=== PATIENT | male | born 1980 | race Caucasian/White ===

== ENCOUNTER 2023-03-30 18:27 | Emergency (ER) | payer OTHER, SELFPAY ==
[2023-03-30 19:07] VITALS: BP 118/74; PULSE 66; RESP 16; TEMP 36.6; O2SAT 96; BMI 27.9
--- NOTE | 2023-03-30 19:07 | ED_ITS ---
HPI - General Adult General Chief complaint: Psychiatric Symptoms Stated complaint: Mental Health Time Seen by Provider: 03/30/23 19:58 Source: patient Mode of arrival: EMS Limitations: no limitations History of Present Illness HPI narrative: Patient comes to the emergency room stating that he feels that his depression and anxiety are worsening. Patient has had multiple stressors in life, 2 months ago his uncle , shortly after that he broke up with his girlfriend, then patient quit his job. Patient states that he takes Celexa 20 mg was not seem to be working as well. Patient requesting to be seen by Psychiatry/behavior Health for outpatient treatment and also for medication recommendations. Denies SI or HI Related Data Home Medications Medication Instructions Recorded Confirmed citalopram 20 mg tablet 30 mg PO DAILY 03/30/23 03/30/23 Allergies Allergy/AdvReac Type Severity Reaction Status Date / Time No Known Allergies Allergy Verified 03/30/23 19:17 Review of Systems Review of Systems: Constitutional : No Weight loss, No Fever, No Chills, No Night Sweats, No Fatigue, No Malaise ENT/Mouth : No Hearing loss, No Ear Pain, No Nasal Congestion, No Sinus Pain, No Hoarseness, No sore throat, No Rhinorrhea, No Swallowing Difficulty Eyes: No Eye Pain, No Swelling, No Redness, No Foreign Body, No Discharge, No Vision Changes Cardiovascular : No Chest Pain, No SOB, No Dyspnea on Exertion, No Orthopnea, No Edema, No Palpitations Respiratory : No Cough, No Sputum, No Wheezing, No Smoke Exposure, No Dyspnea Gastrointestinal : No Nausea, No Vomiting, No Diarrhea, No Constipation, No abdominal Pain, No Hematochezia, No Melena Genitourinary : no irregular bleeding, No Dysuria, No Urinary Frequency, No H ematuria, No Urinary Incontinence, No Urgency, No Flank Pain, No Urinary Flow Changes, No Hesitancy Musculoskeletal : No joint pain, No Myalgias, No Joint Swelling Skin : No Skin Lesions, No rash Neuro : No Weakness, No Numbness, No Paresthesias, No Loss of Consciousness, No Dizziness, No Headache Psych : Of anxiety and depression, multiple life stressors, no SI or HI Heme/Lymph: No Bruising, No Bleeding,No Lymphadenopathy Endocrine : No Polyuria, No Polydipsia, No Temperature Intolerance [facility] Past Medical History Medical History (Updated 03/30/23 @ 20:40 by Opal Green MD) Anxiety and depression Social History Social History Advance Directives: No Advance Directives Information Provided: Yes Physical Exam ED Vital Signs: Vital Signs - 24 hr 03/30/23 19:07 Temperature 97.8 F Pulse Rate 66 Respiratory Rate 16 Blood Pressure 118/74 Pulse Oximetry 96 Oxygen Delivery Method Room Air BMI result Body Mass Index 27.9 Const Other: Appearance: Alert. Oriented X3. No acute distress. Eyes: Pupils equal, round and reactive to light. ENT: Pharynx normal. Neck: Normal inspection. Neck supple. No lymph nodes noted. No crepitus CVS: Normal heart rate and rhythm. Pulses normal. Normal S1 and S2 Respiratory: No respiratory distress. Breath sounds normal. No Wheezing. No rales Abdomen: Soft and nontender. No rigidity. No distention. Skin: Skin warm and dry. Normal skin color. Normal skin turgor. Extremities: No lower extremity edema. No Lacerations. No Rash Neuro: Oriented X 3. No motor deficit. No sensory deficit. Moving all extremities. No slurred speech. CN 2 through 12 grossly intact Psych: calm, cooperative, normal affect, coherent Course Course Course Narrative: RME performed by Annabelle Antunez PA-C. Patient is a 42 year old assigned male at presenting to the emergency department in crisis. Patient states that he is having a difficult time with a lot of emotional events lately. Patient st ates that he would like to talk about resources, possible hospitalization, and medication adjustments. Patient states that he is not suicidal or homicidal. Labs ordered. Patient walked to the POD. Medical Decision Making Medical Decision Making [facility] Narrative: -patient labs pending -care team consult pending -patient is not suicidal homicidal, no need for Section 12. -physician observation started at 20:30 -the care team evaluated the patient. They will make an urgent referral for HD on outpatient basis. Patient is not SI or HI, patient agreeable to be discharged home and feels safe going home Differential Diagnosis Differential Diagnoses: The differential diagnosis associated with the presentation includes (Anxiety, depression, substance abuse) Lab Data [facility] Lab Attestation statement: I reviewed the patient's lab results. (My interpretation of labs: Normal white blood cell count, chemistry unremarkable, toxicology positive for THC) 03/30/23 20:23 03/30/23 20:23 Labs: Lab Results 03/30/23 03/30/23 03/30/23 Range/Units 20:05 20:05 20:05 WBC (4.8-10.8) X10*3/uL RBC (4.60-5.80) X10*6/uL Hgb (14.0-18.0) g/dl Hct (42.0-52.0) % MCV (80.0-98.0) fL MCH (27.0-33.0) pg MCHC (31.0-36.0) g/dl RDW (11.0-16.0) % Plt Count (160-400) X10*3/uL MPV (9.4-12.4) fL Immature Gran % (Auto) (0.0-0.4) % Neut % (Auto) (45-73) % Lymph % (Auto) (20-40) % [place] % (Auto) (2-11) % Eos % (Auto) (0-4) % Baso % (Auto) (0-2) % Lymph # (Auto) (1.2-4.9) X10*3/uL [place] # (Auto) (0.1-1.2) X10*3/uL Eos # (Auto) (0.0-0.4) X10*3/uL Baso # (Auto) (0.0-0.2) X10*3/uL Abs Immat Gran (auto) (0.00-0.03) X10*3/uL Absolute Neuts (auto) (2.0-8.3) x10*3/uL Absolute Nucleated RBC (0.0-0.012) X10*3/uL Nucleated RBC % (auto) (0.0-0.2) /100WBC Sodium (135-145) mmol/L Potassium (3.3-5.1) mmol/L Chloride (96-108) mmol/L Carbon Dioxide (22-29) mmol/L Anion Gap (12-20) BUN (9-16) mg/dL Creatinine (0.5-1.4) mg/dL Estim Creat Clear Calc Estimated GFR Random Glucose (60-115) mg/dL Calcium (8.4-10.2) mg/dL Total Bilirubin (0.0-1.0) mg/dL AST (5-37) U/L ALT (0-40) U/L Alkaline Phosphatase (39-117) U/L Total Protein (6.5-8.0) g/dL Albumin (3.5-5.0) g/dL Urine Color Yellow Urine Appearance Clear Urine pH 5.5 (5.0-9.0) Ur Specific [place] 1.020 (1.005-1.025) Urine Protein Negative (Neg-Trace) mg/dL Urine Glucose (UA) Negative (Negative) mg/dL Urine Ketones Negative (Negative) mg/dL Urine Blood Negative (Negative) Urine Nitrite Negative (Negative) Ur Leukocyte Esterase Negative (Negative) Salicylates (15-30) mg/dL Urine Opiates Screen Not Detected (Not Detect) Urine Fentanyl Screen Not Detected (Not Detect) Acetaminophen (<30) mcg/mL Ur Barbiturates Screen Not Detected (Not Detect) Ur Phencyclidine Scrn Not Detected (Not Detect) Ur Amphetamines Screen Not Detected (Not Detect) U Benzodiazepines Scrn Not Detected (Not Detect) Urine Cocaine Screen Not Detected (Not Detect) U Marijuana (THC) Screen POSITIVE H (Not Detect) Ethyl Alcohol mg/dL COVID-19 (BEKA) Negative (Negative) COVID-19 Clin Com See Note 03/30/23 03/30/23 03/30/23 Range/Units 20:23 20: 20: WBC 6.2 (4.8-10.8) X10*3/uL RBC 4.76 (4.60-5.80) X10*6/uL Hgb 15.2 (14.0-18.0) g/dl Hct 44.8 (42.0-52.0) % MCV 94.1 (80.0-98.0) fL MCH 31.9 (27.0-33.0) pg MCHC 33.9 (31.0-36.0) g/dl RDW 12.4 (11.0-16.0) % Plt Count 292 (160-400) X10*3/uL MPV 9.2 L (9.4-12.4) fL Immature Gran % (Auto) 0.2 (0.0-0.4) % Neut % (Auto) 52.2 (45-73) % Lymph % (Auto) 33.3 (20-40) % [place] % (Auto) 9.2 (2-11) % Eos % (Auto) 4.0 (0-4) % Baso % (Auto) 1.1 (0-2) % Lymph # (Auto) 2.1 (1.2-4.9) X10*3/uL [place] # (Auto) 0.6 (0.1-1.2) X10*3/uL Eos # (Auto) 0.3 (0.0-0.4) X10*3/uL Baso # (Auto) 0.1 (0.0-0.2) X10*3/uL Abs Immat Gran (auto) 0.01 (0.00-0.03) X10*3/uL Absolute Neuts (auto) 3.2 (2.0-8.3) x10*3/uL Absolute Nucleated RBC 0.000 (0.0-0.012) X10*3/uL Nucleated RBC % (auto) 0.0 (0.0-0.2) /100WBC Sodium 137 (135-145) mmol/L Potassium 4.2 (3.3-5.1) mmol/L Chloride 105 (96-108) mmol/L Carbon Dioxide 24 (22-29) mmol/L Anion Gap 12 (12-20) BUN 12 (9-16) mg/dL Creatinine 1.08 (0.5-1.4) mg/dL Estim Creat Clear Calc 107.5 Estimated GFR > 60 Random Glucose 111 (60-115) mg/dL Calcium 8.9 (8.4-10.2) mg/dL Total Bilirubin 0.3 (0.0-1.0) mg/dL AST 17 (5-37) U/L ALT 14 (0-40) U/L Alkaline Phosphatase 63 (39-117) U/L Total Protein 6.7 (6.5-8.0) g/dL Albumin 4.1 (3.5-5.0) g/dL Urine Color Urine Appearance Urine pH (5.0-9.0) Ur Specific [place] (1.005-1.025) Urine Protein (Neg-Trace) mg/dL Urine Glucose (UA) (Negative) mg/dL Urine Ketones (Negative) mg/dL Urine Blood (Negative) Urine Nitrite (Negative) Ur Leukocyte Esterase (Negative) Salicylates < 5.0 L (15-30) mg/dL Urine Opiates Screen (Not Detect) Urine Fentanyl Screen (Not Detect) Acetaminophen < 17 (<30) mcg/mL Ur Barbiturates Screen (Not Detect) Ur Phencyclidine Scrn (Not Detect) Ur Amphetamines Screen (Not Detect) U Benzodiazepines Scrn (Not Detect) Urine Cocaine Screen (Not Detect) U Marijuana (THC) Screen (Not Detect) Ethyl Alcohol < 10 mg/dL COVID-19 (BEKA) (Negative) COVID-19 Clin Com Discharge Plan Discharge Clinical Impression: Anxiety and depression Patient Disposition: Home, Self-Care Instructions: Anxiety (ED) Additional Instructions: Please follow-up with your primary care physician tomorrow. If you have any worsening or new symptoms, please return to the emergency room or call 911 Prescriptions: No Action citalopram 20 mg tablet 30 mg PO DAILY
[2023-03-30 20:22] LABS: Appearance Urine Clear; Color Urine Yellow; Glucose Urine UA Negative (Negative); Leukocyte Esterase Urine Negative (Negative); Nitrite Urine Negative (Negative); PH 5.5 (5.0-9.0); Urine Blood Negative (Negative); Urine Ketones Negative (Negative); Urine Protein Negative (Neg-Trace)
[2023-03-30 20:26] LABS: Amphetamine Screen Urine Not Detected (Not Detect); Barbiturates, Urine Not Detected (Not Detect); Benzodiazepines Screen Urine Not Detected (Not Detect); Cannabinoid Screen Urine POSITIVE (Not Detect); Cocaine Screen Urine Not Detected (Not Detect); Fentanyl, urine Not Detected (Not Detect); Opiate Screen Urine Not Detected (Not Detect); Phencyclidine Screen Urine Not Detected (Not Detect)
[2023-03-30 20:27] LABS: COVID-19 Test Negative (Negative); IDNOW Serial# 55D5AD1C
[2023-03-30 20:28] LABS: MANUAL DIFF FLAG NO
[2023-03-30 20:40] LABS: Basophils Absolute Auto 0.1 X10*3/uL (0.0-0.2); Basophils Percent Auto 1.1 % (0-2); Eosinophils Absolute Auto 0.3 X10*3/uL (0.0-0.4); Hematocrit 44.8 % (42.0-52.0); Hemoglobin 15.2 g/dl (14.0-18.0); Imm Gran Abs Auto 0.01 X10*3/uL (0.00-0.03); Imm Gran Pct Auto 0.2 % (0.0-0.4); Lymphocytes Absolute Auto 2.1 X10*3/uL (1.2-4.9); Lymphocytes Percent Auto 33.3 % (20-40); Mean Corpuscular HGB Conc 33.9 g/dl (31.0-36.0); Mean Corpuscular Hemoglobin 31.9 pg (27.0-33.0); Mean Corpuscular Volume 94.1 fL (80.0-98.0); Mean Platelet Volume 9.2 fL (9.4-12.4); Monocytes Absolute Auto 0.6 X10*3/uL (0.1-1.2); Monocytes Percent Auto 9.2 % (2-11); Neutrophils Absolute Auto 3.2 x10*3/uL (2.0-8.3); Neutrophils Percent Auto 52.2 % (45-73); Platelet Count 292 X10*3/uL (160-400); Red Blood Count 4.76 X10*6/uL (4.60-5.80); Red Cell Distribution Width 12.4 % (11.0-16.0); White Blood Count 6.2 X10*3/uL (4.8-10.8)
[2023-03-30 20:58] LABS: Acetaminophen LAB < 17 mcg/mL (<30); Alanine Aminotransferase 14 U/L (0-40); Albumin Level 4.1 g/dL (3.5-5.0); Alkaline Phosphatase 63 U/L (39-117); Anion Gap 12 (12-20); Aspartate Amino Transferase 17 U/L (5-37); Bilirubin Total 0.3 mg/dL (0.0-1.0); Blood Urea Nitrogen 12 mg/dL (9-16); Calcium 8.9 mg/dL (8.4-10.2); Carbon Dioxide 24 mmol/L (22-29); Chloride 105 mmol/L (96-108); Creatinine Clr Calc Pharmacy 107.5; Estimated Glomerular Filt Rate > 60; Ethanol < 10 mg/dL; Glucose Random 111 mg/dL (60-115); Potassium 4.2 mmol/L (3.3-5.1); Salicylate < 5.0 mg/dL (15-30); Sodium 137 mmol/L (135-145); Total Protein 6.7 g/dL (6.5-8.0)
== END 2023-03-30 22:14 | disposition home or self-care (01) ==
PROVIDERS: Physician Assistant Medical; Emergency Provider Emergency Medicine
DX: F41.8 Other specified anxiety disorders (principal); Z20.822 Contact with and (suspected) exposure to COVID-19; F12.90 Cannabis use, unspecified, uncomplicated; Z79.899 Other long term (current) drug therapy
CPT/HCPCS: 36415; 80053; 80143; 80179; 80307; 81003; 85025; 87635; 99283; S9485

== ENCOUNTER 2024-01-03 13:16 | Emergency (ER) | payer OTHER, SELFPAY ==
[2024-01-03 13:23] VITALS: BP 128/82; PULSE 93; RESP 18; TEMP 36.5; O2SAT 100; BMI 30.3
--- NOTE | 2024-01-03 13:23 | ED.PSYCH ---
HPI - Psych General Chief Complaint: Psychiatric Symptoms Stated Complaint: Mental health Related Data Previous Rx's ?Medication ?Instructions ?Recorded aripiprazole 2 mg tablet (Abilify) 2 mg PO BEDTIME #30 tabs 01/04/24 fluoxetine 20 mg capsule (Prozac) 20 mg PO DAILY #30 caps 01/04/24 Allergies Allergy/AdvReac Type Severity Reaction Status Date / Time No Known Allergies Allergy Verified 01/03/24 13:28 [facility] Past Medical History Medical History (Updated 01/10/24 @ 09:33 by Lolita Boyce NP) Anxiety and depression Physical Exam Vital Signs: Vital Signs: Last Vital Signs Temp 97.7 F 01/03/24 13:23 Pulse 93 01/03/24 13:23 Resp 18 01/03/24 13:23 BP 128/82 01/03/24 13:23 Pulse Ox 100 01/03/24 13:23 O2 Del Method Room Air 01/03/24 13:23 BMI result Body Mass Index 30.3 Course Course Course Narrative: This is a rapid medical exam: Additional HPI, ROS, PE not included below will be deferred to primary provider. Patient is a 43-year-old male presenting to the ED with complaint of difficult remaining stable. He denies suicidal or homicidal ideations, denies auditory or visual hallucinations. Admits to drinking alcohol and using marijuana but states is not interested in detox at this time. Friend states he is looking to speak with Sabine Michaud. Plan: med clearance, CARE team eval Medical Decision Making Lab Data 01/03/24 14:08 01/03/24 14:08 Labs: Lab Results 01/03/24 Range/Units 14:08 WBC 7.2 (4.8-10.8) X10*3/uL RBC 4.97 (4.60-5.80) X10*6/uL Hgb 15.9 (14.0-18.0) g/dl Hct 46.4 (42.0-52.0) % MCV 93.4 (80.0-98.0) fL MCH 32.0 (27.0-33.0) pg MCHC 34.3 (31.0-36.0) g/dl RDW 12.4 (11.0-16.0) % Plt Count 300 (160-400) X10*3/uL MPV 9.1 L (9.4-12.4) fL Immature Gran % (Auto) 0.3 (0.0-0.4) % Neut % (Auto) 56.5 (45-73) % Lymph % (Auto) 30.6 (20-40) % [place] % (Auto) 7.7 (2-11) % Eos % (Auto) 4.1 H (0-4) % Baso % (Auto) 0.8 (0-2) % Lymph # (Auto) 2.2 (1.2-4.9) X10*3/uL [place] # (Auto) 0.6 (0.1-1.2) X10*3/uL Eos # (Auto) 0.3 (0.0-0.4) X10*3/uL Baso # (Auto) 0.1 (0.0-0.2) X10*3/uL Abs Immat Gran (auto) 0.02 (0.00-0.03) X10*3/uL Absolute Neuts (auto) 4.1 (2.0-8.3) x10*3/uL Absolute Nucleated RBC 0.000 (0.0-0.012) X10*3/uL Nucleated RBC % (auto) 0.0 (0.0-0.2) /100WBC Sodium 141 (135-145) mmol/L Potassium 3.7 (3.3-5.1) mmol/L Chloride 109 H (96-108) mmol/L Carbon Dioxide 28 (22-29) mmol/L Anion Gap 8 L (12-20) BUN 11 (9-16) mg/dL Creatinine 1.02 (0.5-1.4) mg/dL Estim Creat Clear Calc 126.3 Estimated GFR > 60 Random Glucose 67 (60-115) mg/dL Calcium 8.8 (8.4-10.2) mg/dL Total Bilirubin 0.3 (0.0-1.0) mg/dL AST 21 (5-37) U/L ALT 22 (0-40) U/L Alkaline Phosphatase 65 (39-117) U/L Total Protein 7.1 (6.5-8.0) g/dL Albumin 4.3 (3.5-5.0) g/dL Ethyl Alcohol 32 mg/dL COVID-19 (BEKA) Negative (Negative) COVID-19 Clin Com See Note Discharge Plan Discharge Clinical Impression: Acute anxiety Patient Disposition: Left W/O Completing Treatment Prescriptions: No Action fluoxetine [Prozac] 20 mg capsule 20 mg PO DAILY Qty: 30 0RF aripiprazole [Abilify] 2 mg tablet 2 mg PO BEDTIME Qty: 30 0RF Interventions: [place]-Suicide Risk Severity Scale Last Done: 01/03/24 15:50 LWBS Worksheet Last Done: 01/03/24 15:49 Discharge Date/Time: 01/03/24 15:49
[2024-01-03 14:12] LABS: MANUAL DIFF FLAG NO
[2024-01-03 14:16] LABS: Basophils Absolute Auto 0.1 X10*3/uL (0.0-0.2); Basophils Percent Auto 0.8 % (0-2); Eosinophils Absolute Auto 0.3 X10*3/uL (0.0-0.4); Eosinophils Percent Auto 4.1 % (0-4); Hematocrit 46.4 % (42.0-52.0); Hemoglobin 15.9 g/dl (14.0-18.0); Imm Gran Abs Auto 0.02 X10*3/uL (0.00-0.03); Imm Gran Pct Auto 0.3 % (0.0-0.4); Lymphocytes Absolute Auto 2.2 X10*3/uL (1.2-4.9); Lymphocytes Percent Auto 30.6 % (20-40); Mean Corpuscular HGB Conc 34.3 g/dl (31.0-36.0); Mean Corpuscular Volume 93.4 fL (80.0-98.0); Mean Platelet Volume 9.1 fL (9.4-12.4); Monocytes Absolute Auto 0.6 X10*3/uL (0.1-1.2); Monocytes Percent Auto 7.7 % (2-11); Neutrophils Absolute Auto 4.1 x10*3/uL (2.0-8.3); Neutrophils Percent Auto 56.5 % (45-73); Platelet Count 300 X10*3/uL (160-400); Red Blood Count 4.97 X10*6/uL (4.60-5.80); Red Cell Distribution Width 12.4 % (11.0-16.0); White Blood Count 7.2 X10*3/uL (4.8-10.8)
[2024-01-03 14:24] LABS: Ethanol 32 mg/dL
[2024-01-03 14:28] LABS: Alanine Aminotransferase 22 U/L (0-40); Albumin Level 4.3 g/dL (3.5-5.0); Alkaline Phosphatase 65 U/L (39-117); Anion Gap 8 (12-20); Aspartate Amino Transferase 21 U/L (5-37); Bilirubin Total 0.3 mg/dL (0.0-1.0); Blood Urea Nitrogen 11 mg/dL (9-16); Calcium 8.8 mg/dL (8.4-10.2); Carbon Dioxide 28 mmol/L (22-29); Chloride 109 mmol/L (96-108); Creatinine Clr Calc Pharmacy 126.3; Estimated Glomerular Filt Rate > 60; Glucose Random 67 mg/dL (60-115); Potassium 3.7 mmol/L (3.3-5.1); Sodium 141 mmol/L (135-145); Total Protein 7.1 g/dL (6.5-8.0)
[2024-01-03 14:36] LABS: COVID-19 Test Negative (Negative); IDNOW Serial# 58CA691E
== END 2024-01-03 15:49 | disposition left against medical advice (07) ==
PROVIDERS: Registered Nurse Emergency; Emergency Provider Emergency Medicine
DX: F41.1 Generalized anxiety disorder (principal); F43.0 Acute stress reaction; Z11.52 Encounter for screening for COVID-19; Z79.899 Other long term (current) drug therapy
CPT/HCPCS: 36415; 80053; 80307; 85025; 87635; 99283

== ENCOUNTER 2024-01-04 10:57 | Outpatient (AMB) | payer OTHER, SELFPAY ==
[2024-01-04 11:06] VITALS: BP 160/80; PULSE 80; RESP 20; O2SAT 98
--- NOTE | 2024-01-04 11:06 | A.OFFVISCC_ITS ---
Vital Signs 01/04/24 11:06 BP 160/80 H Blood Pressure Location Rt brachial Position Sitting Respiration 20 Pulse 80 Pulse Oximetry (%) 98 Oxygen Delivery Method Room Air Intake Visit Reasons: Intake Allergies No Known Allergies Allergy (Verified 01/03/24 13:28) Medication List - Last Reconciled 01/04/24 by Sabine Michaud CNP HPI HPI Intake: Details: Patient presents for intake and evaluation for alcohol use disorder and associated depressive sx Alcohol 2-6 beers per night for at least the last month couple nips reporting increasing depressive sx Sleep: 11p-2p limited sleep no night terros no issues with appetite amotivation Recently lost his job --has lost several recently due to calling out Anxiety no PCP at this time History Respite x2 2016 (depression.anxiety) No psychiatric admission providers -- [facility] 2017 [employer] Previous medication trials Atomexatine Lexapro Prozac (somewhat helpful) Wellbutrin (irritable) Risperdal (limited trial) ativan hydroxyzine PRN No medications NKA Loss of brother and relationship --precipitating factors Son is 11 --coparenting (protective factor ) lives with friend in [place] Drinks less with therapy self depricating Family History: Father with AUD Mother with mesclaine Siblings 3 siblings -depression Motivation for treatment is to address BH sx Limited insight into alcohol's role in this Open to medications and referral Denies suicidal ideation, however passive thoughts are often there [facility] Medical History (Updated 01/05/24 @ 20:30 by Sabine Michaud CNP) Anxiety and depression Review of Systems Const Reports as per HPI Physical Exam Vital Signs: Last Vital Signs Pulse 80 01/04/24 11:06 Resp 20 01/04/24 11:06 BP 160/80 H 01/04/24 11:06 Pulse Ox 98 01/04/24 11:06 Oxygen Delivery Method Room Air 01/04/24 11:06 Const General: cooperative, no acute distress and anxious Nutritional Appearance: average body habitus Orientation/consciousness: patient oriented x3 Limitations: no limitations Neuro General: patient oriented x3 Psych Appearance: well kempt Speech and movement: Normal speech and movement present Affect: Animated affect present and Anxious affect present Attitude: cooperative Thought process: Circumstantial thought process present Thought content: Depressive thoughts present Insight: Fair insight present (Psych) Judgement: Fair judgement present (Psych) Assessment & Plan Assessment & Plan (1) Alcohol use disorder, moderate, dependence: Code(s): F10.20 - Alcohol dependence, uncomplicated Category: Medical Plan: * risk reduction discussion and resources provided * declining naltrexone at this time (2) Major depressive disorder, recurrent: Code(s): F33.9 - Major depressive disorder, recurrent, unspecified Category: Medical Plan: * Fluoxetine 20mg daily (patient familiar with this medication, dosing and side effects) * Abilify 2mg QD -dosing, side effects and goals of treatment reviewed * follow up 2 weeks Medications: New fluoxetine (Prozac) 20 mg PO DAILY 30 caps 0RF aripiprazole (Abilify) 2 mg PO BEDTIME 30 tabs 0RF
== END 2024-01-04 12:09 | disposition home or self-care (01) ==
PROVIDERS: Visit Provider Nurse Practitioner Psychiatric/Mental Health
DX: F10.20 Alcohol dependence, uncomplicated (principal); F33.9 Major depressive disorder, recurrent, unspecified
CPT/HCPCS: 99204

== ENCOUNTER → 2024-01-04 10:57 | Outpatient (BNVA) | payer OTHER, SELFPAY | PROVIDERS: Visit Provider Nurse Practitioner Psychiatric/Mental Health | DX: F10.20 Alcohol dependence, uncomplicated (principal); F33.9 Major depressive disorder, recurrent, unspecified | CPT/HCPCS: 99202 ==

== ENCOUNTER 2024-01-21 09:57 | Outpatient (AMB) | payer OTHER, SELFPAY ==
[2024-01-21 09:59] VITALS: BP 132/90; PULSE 83; O2SAT 98
--- NOTE | 2024-01-21 09:59 | A.OFFVISCC_ITS ---
Vital Signs 01/21/24 09:59 BP 132/90 H Blood Pressure Location Lt brachial Position Sitting Pulse 83 Pulse Source Pulse Oximeter Pulse Oximetry (%) 98 Oxygen Delivery Method Room Air Intake Visit Reasons: MAT Allergies No Known Allergies Allergy (Verified 01/03/24 13:28) HPI HPI MAT: Details: Patient presents for follow up Tolerating medication -taking both in the morning Does feel like he has a bit more motivation, but also questioning if he is edgier with people Sleep 5-7 hours per night appetite okay still wants to trial ADHD medications (adderall) --advised that this would not be something we would be doing right now concerns related to ongoing alcohol use with limited insight has not heard from [facility] regarding therapy--requested RN follow up Regarding drinking: reducing amount and frequency 6 pack and pint of whiskey is what he would usually purchase to drink in one sitting Now buying 3 tall beers instead no longer drinking daily--taking 2-3 days off per week. working to quit smoking-smoking one ppd Discussed strategies including medication, reducing amount over a period of time, and patient is considering hypnosios [facility] Medical History (Updated 01/11/24 @ 00:01 by Background Daemon) Anxiety and depression Review of Systems Const Reports as per HPI Physical Exam Vital Signs: Last Vital Signs Pulse 83 01/21/24 09:59 BP 132/90 H 01/21/24 09:59 Pulse Ox 98 01/21/24 09:59 Oxygen Delivery Method Room Air 01/21/24 09:59 Const General: cooperative, no acute distress and well groomed Assessment & Plan Assessment & Plan (1) Alcohol use disorder, moderate, dependence: Code(s): F10.20 - Alcohol dependence, uncomplicated Category: Medical Plan: * risk reduction discussion (2) Major depressive disorder, recurrent: Code(s): F33.9 - Major depressive disorder, recurrent, unspecified Category: Medical Plan: * no change to regimen * follow up 4 weeks
== END 2024-01-21 10:45 | disposition home or self-care (01) ==
PROVIDERS: Visit Provider Nurse Practitioner Psychiatric/Mental Health
DX: F10.20 Alcohol dependence, uncomplicated (principal); F33.9 Major depressive disorder, recurrent, unspecified
CPT/HCPCS: 99214

== ENCOUNTER → 2024-01-21 09:57 | Outpatient (BNVA) | payer OTHER, SELFPAY | PROVIDERS: Visit Provider Nurse Practitioner Psychiatric/Mental Health | DX: F10.20 Alcohol dependence, uncomplicated (principal); F33.9 Major depressive disorder, recurrent, unspecified | CPT/HCPCS: 99212 ==

== ENCOUNTER 2024-02-19 16:01 | Outpatient (AMB) | payer OTHER, SELFPAY ==
--- NOTE | 2024-02-19 16:00 | A.OFFVISCC_ITS ---
Vital Signs 02/19/24 16:05 BP 144/90 H Blood Pressure Location Rt brachial Position Sitting Respiration 18 Pulse 76 Pulse Source Pulse Oximeter Pulse Oximetry (%) 99 Oxygen Delivery Method Room Air Intake Visit Reasons: MAT Allergies No Known Allergies Allergy (Verified 01/03/24 13:28) HPI HPI MAT: Details: Patient presents for AUD treatment and follow up States he has been trying unsuccessfully to quit smoking, asking for chantix Requesting counseling referral for transient depressive episodes Reports his alcohol use is generally 4 days on, 3 days off Has been drinking 4 16oz beers, and 2 shots Denies any symptoms of withdrawal when he does not drink, states maybe some mild irritability Is working to continue to cut down etoh use HPI Comments Details: Patient presents for MAT visit [facility] Medical History (Updated 01/11/24 @ 00:01 by Background Daemon) Anxiety and depression Review of Systems Const Reports as per HPI Physical Exam Vital Signs: Last Vital Signs Pulse 76 02/19/24 16:05 Resp 18 02/19/24 16:05 BP 144/90 H 02/19/24 16:05 Pulse Ox 99 02/19/24 16:05 Oxygen Delivery Method Room Air 02/19/24 16:05 Const General: cooperative and no acute distress Resp Effort & Inspection: normal respiratory effort and able to speak in complete sentences Psych Appearance: grossly normal Mental Status: mental status grossly normal Speech and movement: Normal speech and movement present Affect: normal affect Attitude: cooperative Thought process: Normal thought process present Assessment & Plan Assessment & Plan (1) Alcohol use disorder, moderate, dependence: Code(s): F10.20 - Alcohol dependence, uncomplicated Category: Medical Plan: -Referral placed for [facility] -CHantix rx sent to pharmacy, educated pt to stop med immediately for any depressive or SI thoughts and to seek higher level of care, reviewed potential side effects and how to take medication -Discussed harm reduction -Follow up 2 weeks Orders: Referrals 2 Counseling Referral F10.20 - Alcohol dependence, uncomplicated Medications: New varenicline PO PER PKG DIR 53 ea 0RF
[2024-02-19 16:05] VITALS: BP 144/90; PULSE 76; RESP 18; O2SAT 99
== END 2024-02-19 16:25 | disposition home or self-care (01) ==
PROVIDERS: Visit Provider Nurse Practitioner Family
DX: F10.20 Alcohol dependence, uncomplicated (principal)
CPT/HCPCS: 99213

== ENCOUNTER → 2024-02-19 16:01 | Outpatient (BNVA) | payer OTHER, SELFPAY | PROVIDERS: Visit Provider Nurse Practitioner Family | DX: F10.20 Alcohol dependence, uncomplicated (principal) | CPT/HCPCS: 99212 ==

== ENCOUNTER 2024-04-02 15:51 | Outpatient (AMB) | payer OTHER, SELFPAY ==
--- NOTE | 2024-04-02 16:05 | A.OFFVISCC_ITS ---
Intake Visit Reasons: MAT office Allergies No Known Allergies Allergy (Verified 01/03/24 13:28) HPI HPI MAT office: Details: smoking a pack a day down to 1/4 pack a day chantix -nausea still tolerating abilify and prozac feels depression and anxiety are improving reporting some fatigue sleeping well decreased amount has decreased to one beer every other day PFSH Medical History (Updated 01/11/24 @ 00:01 by Background Daemon) Anxiety and depression Review of Systems Const Reports as per HPI and Reports no additional complaints Physical Exam Const General: cooperative, healthy appearing, no acute distress and well groomed Assessment & Plan Assessment & Plan (1) Alcohol use disorder, moderate, dependence: Code(s): F10.20 - Alcohol dependence, uncomplicated Category: Medical Plan: * risk reduction discussion (2) Major depressive disorder, recurrent: Code(s): F33.9 - Major depressive disorder, recurrent, unspecified Category: Medical Plan: * medications refilled * follow up 2 months Medications: Refilled aripiprazole (Abilify) 2 mg PO BEDTIME 30 tabs 2RF fluoxetine (Prozac) 20 mg PO DAILY 30 caps 2RF
== END 2024-04-02 16:18 | disposition home or self-care (01) ==
PROVIDERS: Visit Provider Nurse Practitioner Psychiatric/Mental Health
DX: F10.20 Alcohol dependence, uncomplicated (principal); F33.9 Major depressive disorder, recurrent, unspecified
CPT/HCPCS: 99214

== ENCOUNTER → 2024-04-02 15:51 | Outpatient (BNVA) | payer OTHER, SELFPAY | PROVIDERS: Visit Provider Nurse Practitioner Psychiatric/Mental Health | DX: F10.20 Alcohol dependence, uncomplicated (principal); F33.9 Major depressive disorder, recurrent, unspecified | CPT/HCPCS: 99212 ==

== ENCOUNTER 2025-03-09 16:53 | Emergency (ER) | payer MEDICAID, SELFPAY ==
[2025-03-09 16:56] VITALS: BP 129/97; PULSE 123; RESP 18; TEMP 36.6; O2SAT 99; BMI 30.3
--- NOTE | 2025-03-09 16:56 | ED_ITS ---
HPI - General Adult General Chief complaint: Psychiatric Symptoms Stated complaint: psych eval Time Seen by Provider: 03/09/25 17:34 History of Present Illness ED Provider: Reed Vásquez MD HPI narrative: 44-year-old male with chronic depression. He has been working but feeling very hopeless. No SI or HI. Per previously was in respite residential facility which helped him. Seems that he has had daily alcohol use occasional marijuana use. This is mental health issues starting to affect his work. He recently came into medical insurance and he is coming for evaluation. Previously was on medications including SSRI Abilify and Adderall. Related Data Allergies Allergy/AdvReac Type Severity Reaction Status Date / Time No Known Allergies Allergy Verified 03/09/25 17:01 [facility] Past Medical History Medical History (Updated 03/09/25 @ 19:40 by Reed Vásquez MD) Anxiety and depression Social History Social History Alcohol intake: current Alcohol intake frequency: a few times a week Alcohol type: beer Use of substances other than those prescribed or required for medical reasons: Yes Substance Use Type: Marijuana Substance Use Frequency: Chronic Longstanding Substance Use Frequency Other:: toda Last Used Substance: Hours (ago) Any prior treatment program specific to substance use: No Advance Directives: No Advance Directives Information Provided: No Do you have a plan to hurt others: No Plan Physical Exam ED Vital Signs: Vital Signs - 24 hr 03/09/25 19:46 Temperature 98.6 F Pulse Rate 100 Respiratory Rate 16 Blood Pressure 126/78 Pulse Oximetry 99 Oxygen Delivery Method Room Air BMI result Body Mass Index 30.3 Const Other: EXAM: Gen: Alert, awake, well appearing, well hydrated. Head: Atraumatic Eyes: Anicteric, Normal conjunctiva. ENT: Moist mucosa, no pallor. ? Neck: Supple. Skin: ?No observable rash or bruising on exposed or examined skin Respiratory: Breathing comfortably, No distress.Clear to auscultation bilaterally, symmetric chest expansion, No wheeze, rales, ronchi. Cardiovascular: Regular rate and rhythm. No murmurs or rub. Well perfused periphery, warm extremities. No edema. ? Abdominal: No FOCAL TENDERNESS. Soft, no objective distension. No palpable masses or obvious organomegaly. ?No guarding, no rebound tenderness or other peritoneal findings. : No flank tenderness. Neuro: Alert. Gross movement of all extremities intact. ? Psych: Calm. Cooperative. Depressed. No SI or HI. Not psychotic. Alcohol use daily. MSK: No grossly visible deformity. Vital signs: See flowsheet Course Course Course Narrative: RME performed by Annabelle Antunez PA-C. Patient is a 44 year old assigned male at presenting to the emergency department with difficulty staying mentally stable. Feeling lost / hopeless but denies any HI or SI. 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 EKG, labs, and swabs ordered. Patient placed back in the waiting room pending room availability and results. Medications Administered Discontinued Medications Generic Name Dose Route Start Last Admin Trade Name Freq PRN Reason Stop Dose Admin Thiamine HCl 100 mg 03/09/25 18:48 03/09/25 19:45 Thiamine Hcl 100 Mg Tablet PO 03/09/25 18:49 100 mg ONCE ONE Administration Medical Decision Making Medical Decision Making [facility] Narrative: 44-year-old male with chronic depression likely decompensated. Alcohol use daily. Clinically not in withdrawal declines detox. No acute medical complaints other than what is likely a lymph node under the right mandible that may need outpatient ENT evaluation which I have written on his discharge paper and discussed the importance of follow up for. No acute medical emergency identified. Care team evaluation for resources Differential Diagnosis Differential Diagnoses: The differential diagnosis associated with the presentation includes Depression, alcohol use disorder, electrolyte derangement, Lab Data [facility] Lab Attestation statement: I reviewed the patient's lab results. 03/09/25 17:19 03/09/25 17:19 Labs: Lab Results 03/09/25 03/09/25 Range/Units 17:19 17:58 WBC 7.5 (4.8-10.8) X10*3/uL RBC 5.00 (4.60-5.80) X10*6/uL Hgb 16.4 (14.0-18.0) g/dl Hct 45.2 (42.0-52.0) % MCV 90.4 (80.0-98.0) fL MCH 32.8 (27.0-33.0) pg MCHC 36.3 H (31.0-36.0) g/dl RDW 12.9 (11.0-16.0) % Plt Count 330 (160-400) X10*3/uL MPV 8.9 L (9.4-12.4) fL Immature Gran % (Auto) 0.3 (0.0-0.4) % Neut % (Auto) 58.9 (45-73) % Lymph % (Auto) 30.4 (20-40) % [place] % (Auto) 7.2 (2-11) % Eos % (Auto) 2.3 (0-4) % Baso % (Auto) 0.9 (0-2) % Lymph # (Auto) 2.3 (1.2-4.9) X10*3/uL [place] # (Auto) 0.5 (0.1-1.2) X10*3/uL Eos # (Auto) 0.2 (0.0-0.4) X10*3/uL Baso # (Auto) 0.1 (0.0-0.2) X10*3/uL Abs Immat Gran (auto) 0.02 (0.00-0.03) X10*3/uL Absolute Neuts (auto) 4.4 (2.0-8.3) x10*3/uL Absolute Nucleated RBC 0.000 (0.0-0.012) X10*3/uL Nucleated RBC % (auto) 0.0 (0.0-0.2) /100WBC Sodium 140 (135-145) mmol/L Potassium 3.8 (3.3-5.1) mmol/L Chloride 110 H (96-108) mmol/L Carbon Dioxide 19 L (22-29) mmol/L Anion Gap 15 (12-20) BUN 7 L (9-16) mg/dL Creatinine 1.19 (0.5-1.4) mg/dL Estim Creat Clear Calc 107.1 Estimated GFR > 60 Random Glucose 139 H (60-115) mg/dL Calcium 8.8 (8.4-10.2) mg/dL Total Bilirubin 0.4 (0.0-1.0) mg/dL AST 24 (5-37) U/L ALT 24 (0-40) U/L Alkaline Phosphatase 73 (39-117) U/L Total Protein 7.0 (6.5-8.0) g/dL Albumin 4.3 (3.5-5.0) g/dL Urine Color Yellow Urine Appearance Clear Urine pH 5.5 (5.0-9.0) Ur Specific [place] <= 1.005 (1.005-1.025) Urine Protein Negative (Neg-Trace) mg/dL Urine Glucose (UA) Negative (Negative) mg/dL Urine Ketones Negative (Negative) mg/dL Urine Blood Negative (Negative) Urine Nitrite Negative (Negative) Ur Leukocyte Esterase Negative (Negative) Salicylates < 5.0 L (15-30) mg/dL Urine Opiates Screen Not Detected (Not Detect) Ur Buprenorphine Scrn Not Detected (Not Detect) ng/mL Ur Oxycodone Screen Not Detected (Not Detect) ng/mL Urine Methadone Screen Not Detected (Not Detect) ng/mL Urine Fentanyl Screen Not Detected (Not Detect) Acetaminophen < 3 (<30) mcg/mL Ur Barbiturates Screen Not Detected (Not Detect) Ur Phencyclidine Scrn Not Detected (Not Detect) Ur Amphetamines Screen Not Detected (Not Detect) U Benzodiazepines Scrn Not Detected (Not Detect) Urine Cocaine Screen Not Detected (Not Detect) U Marijuana (THC) Screen POSITIVE H (Not Detect) Ethyl Alcohol 87 mg/dL COVID-19 (BEKA) Negative (Negative) COVID-19 Clin Com See Note Discharge Plan Discharge Clinical Impression: Major depressive disorder, recurrent Patient Disposition: Home, Self-Care Instructions: Depression (ED) Additional Instructions: _ DISCHARGE DIAGNOSES: Depression, regular alcohol use HISTORY OF PRESENTATION: Worsening depression EMERGENCY DEPARTMENT COURSE,TESTS, TREATMENTS: While in the ED today you had lab work that was reassuring. We evaluated what you felt was a chronic lump on the underside of your right mandible/jaw you may need to follow up with ENT for this for an ultrasound and evaluation see below. After discussion with our care team you decided to self discharge which we feel is safe and present to respite in [place] follow instructions per our care team DISCHARGE MEDICATIONS: ?[We have made no changes to your regular medication regimen] FOLLOW-UP: ?Call your primary or general physician soon as possible to discuss your symptoms, your ED visit and to discuss follow up plans Call ENT office for follow up Return tomorrow morning to respite in [place] as discussed with care team INSTRUCTIONS ?& RETURN PRECAUTIONS: If any symptoms change first call your primary physician, if it is after-hours your primary doctors office should have a provider remote operations producer you can speak with. If the symptoms are severe or very concerning to you then call 911 or return to the ED. Reed Vásquez MD Emergency Physician [facility] Referrals: PhysicianEugene [Primary Care Provider, Medical] Referral Note: Call for follow up of the nodule under the right mandible [facility] at [phone] Interventions: Mcbh [place]-Suicide Risk Severity Scale Last Done: 03/09/25 17:01 ED Discharge Assessment Last Done: 03/09/25 19:46 Discharge Date/Time: 03/09/25 19:54 Print Language: Israeli
--- NOTE | 2025-03-09 16:57 | ECG_ITS ---
Test Reason : medical clearance Blood Pressure : */* mmHG Vent. Rate : 124 BPM Atrial Rate : 124 BPM P-R Int : 158 ms QRS Dur : 86 ms QT Int : 300 ms P-R-T Axes : 51 -38 21 degrees QTcB Int : 431 ms Sinus tachycardia Left axis deviation Possible Inferior infarct , age undetermined Abnormal ECG No previous ECGs available Referred By: Annabelle Antunez Electronically Signed By: RONNIE MORGAN MD
--- OUTSIDE RECORDS SUMMARY | 2025-03-09 17:06 | XMS_ITS | Data Portability ---
Author Organization [facility], [employer] Address [address] [place] [phone] Assessment Encounter Date Assessment Date Assessment LastModified by Organization Details LastModified Time 04/05/2023 04/05/2023 Already on celexa. Increase dose. No BOB. Discussed the other meds as below. Discussed supportive care. F/u 2 weeks. Working on getting [employer]. [email or web address] Not available 04/05/2023 09:58:15 Plan of Treatment Reminders Order Date Submit Date Provider Last Modified By Organization Details Last Modified Time Details Appointments None recorded. Lab None recorded. Referral None recorded. Procedures None recorded. Surgeries None recorded. Imaging None recorded. Medication Orders citalopram 40 mg tablet 2022 023 [facility]/Pharmacy #[id number], [address] [facility], [id number], 3 09:28:34 lorazepam 0.5 mg tablet 2022 023 [email or web address] [facility]/Pharmacy #[id number], [address] [place], [id number], 3 09:53:55 trazodone 50 mg tablet 2022 023 [facility]/Pharmacy #[id number], [address] [place], [id number], 3 09:28:35 Patient TargetsNo targets recorded. Patient InstructionsNo instructions recorded. Reason for Referral None Reported. Medical Equipment None Reported. Medications Name Sig Start Date Stop Date Status Note LastModified by Organization Details LastModified Time bupropion HCl SR 150 mg tablet,12 hr sustained- release TAKE 1 TABLET BY MOUTH TWICE A DAY active Not Available Not Available No t Available citalopram 40 mg tablet TAKE 1 TABLET BY MOUTH EVERY DAY FOR 30 DAYS 2022 active Not Available Not Available Not Avai lable trazodone 50 mg tablet TAKE 1 TABLET BY MOUTH EVERY DAY AT BEDTIME 2022 active Not Available Not Available Not Avai lable citalopram 20 mg tablet TAKE 1 AND 1/2 TABLETS BY MOUTH DAILY active Not Available Not Available No t Available lorazepam 0.5 mg tablet active Lorazepam is on backorder . Not Available Not Available Not Available imiquimod 5 % topical cream packet APPLY 1 PACKET TOPICALLY 3 TIMES A WEEK. WASH HANDS PRIOR TO AND FOLLOWING APPLICATI ON. active Not Available Not Available No t Available Vitals None Recorded Social History None recorded. Functional Status None recorded. Mental Status None recorded. Family History Nothing Reported. Medical History No medical history recorded. Past Encounters Encounter ID Performer Location Encounter Start Date Encounter Closed Date Diagnosis/Indication Diagnosis SNOMED-CT Code Diagnosis ICD10 Code Diagnosis Note [id number] Aki Staples DO Main Office [address] [facility],[address] [facility] [place] [id number] 04/05/2023 08:02:14 04/05/2023 14:02:32 Generalized anxiety disorder 61923101 F41.1 Health Concerns Section Related Observation LastModified by Organization Detai ls LastModified Time None Recorded Concern Status LastModified by Organization Details LastModified Time None Recorded Advance Directives Directive None Recorded Payers Insurance Date Sequence Insurance Name Policy Number Policy Dash Covered Member ID Dash Member ID Guarantor Name 04/05/2023 1 *SELF PAY* Nick Esat Notes Date Note Type Note Provider Name and Address Organization Details Recorded Time 04/05/2023 text/html Worsening stress , anxiety, depression for last few months. Family, interpersonal issues. No SI. Missing time at work due to stress. Currently has intake completed at [facility]. Aki Staples DO [address] [place] [address] [address], [place], [phone], [facility] - Radha [facility] 04/05/2023 10:00:28
--- OUTSIDE RECORDS SUMMARY | 2025-03-09 17:06 | XMS_ITS | Data Portability ---
Author Organization [facility], [employer] Address [address] [place] [phone] Assessment Encounter Date Assessment Date Assessment LastModified by Organization Details LastModified Time 04/05/2023 04/05/2023 Already on celexa. Increase dose. No BOB. Discussed the other meds as below. Discussed supportive care. F/u 2 weeks. Working on getting [employer]. Not available 04/05/2023 09:58:15 Plan of Treatment Reminders Order Date Submit Date Provider Last Modified By Organization Details Last Modified Time Details Appointments None recorded. Lab None recorded. Referral None recorded. Procedures None recorded. Surgeries None recorded. Imaging None recorded. Medication Orders citalopram 40 mg tablet 2022 023 [facility]/Pharmacy #[id number], [address] [facility] [place], [address], 3 09:28:34 lorazepam 0.5 mg tablet 2022 023 [email or web address] [facility]/Pharmacy #[id number], [address] [place], [id number], 3 09:53:55 trazodone 50 mg tablet 2022 023 [facility]/Pharmacy #[id number], [address] [place], [address], 3 09:28:35 Patient TargetsNo targets recorded. Patient [...] SNOMED-CT Code Diagnosis ICD10 Code Diagnosis Note [id number] Aki Staples DO Main Office [address] [facility],[address] [facility] [place] [id number] 04/05/2023 08:02:14 04/05/2023 14:02:32 Generalized anxiety disorder 58889868 F41.1 Health Concerns Section Related Observation LastModified by Organization Detai ls LastModified Time None Recorded Concern Status LastModified by Organization Details LastModified Time None Recorded Advance Directives Directive None Recorded Payers Insurance Date Sequence Insurance Name Policy Number Policy Dash Covered Member ID Dash Member ID Guarantor Name 04/05/2023 1 *SELF PAY* Nick East Notes Date Note Type Note Provider Name and Address Organization Details Recorded Time 04/05/2023 text/html Worsening stress , anxiety, depression for last few months. Family, interpersonal issues. No SI. Missing time at work due to stress. Currently has intake completed at [facility]. Aki Staples DO [address] [place] [address], [place], [phone], [facility] - Radha [facility] 04/05/2023 10:00:28
--- OUTSIDE RECORDS SUMMARY | 2025-03-09 17:06 | XMS_ITS | Clinical Summary ---
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 Active Social History Tobacco Use Types Packs/Day Years Used Date Smoking Tobacco: Every Day Cigarettes Smokeless Tobacco: Never Alcohol Use Standard Drinks/Week Comments Yes 0 (1 standard drink = 0.6 oz pur e alcohol) Sex and Gender Information Value Date Recorded Sex Assigned at Not on file Legal Sex Male 12:07 PM EDT Gender Identity Not on file Sexual Orientation Not on file Last Filed Vital Signs Vital Sign Reading Time Taken Comments Blood Pressure 149/103 07/19/2022 12:15 PM EST Pulse 94 07/19/2022 12:15 PM EST Temperature 37.1 C (98.7 F) 07/19/2022 12:15 PM EST Respiratory Rate 16 07/19/2022 12:15 PM EST Oxygen Saturation 97% 07/19/2022 12:15 PM EST Inhaled Oxygen Concentration - - Weight 106.6 kg (235 lb) 05/27/2021 12:19 PM EDT Height - - Body Mass Index - - Plan of Treatment Health Maintenance Due Date Last Done Comments HIV Screening 1981 Hepatitis C Screening 1981 Varicella Vaccines (1 of 2 - 13+ 2-dose series) 1994 Hepatitis B Vaccines (1 of 3 - 19+ 3-dose series) 2000 Pneumococcal Vaccine: Pediat rachel (0-5 Years) and At-Risk Patients (6-50 Years) (1 of 2 - PCV) 2000 COVID-19 Vaccine ( season) 2024 09/27/2021, 02/09/2021, 01/05/2021 Alcohol/Substance Use Screening 09/10/2024 Depression Screening and Follow-Up 09/10/2024 Social Drivers of Health Luciana ual Screening 09/10/2024 DTaP,Tdap,and Td Vaccines (2 - Td or Tdap) 10/02/2024 10/02/2014 Influenza Vaccine (Season Ended) 2025 RSV Vaccine (60+ years old a nd patients) (1 - 1-dose 75+ series) 2056 Insurance [facility] HMO/POS Care Teams 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
[2025-03-09 17:29] LABS: MANUAL DIFF FLAG NO
[2025-03-09 17:30] LABS: Basophils Absolute Auto 0.1 X10*3/uL (0.0-0.2); Basophils Percent Auto 0.9 % (0-2); Eosinophils Absolute Auto 0.2 X10*3/uL (0.0-0.4); Eosinophils Percent Auto 2.3 % (0-4); Hematocrit 45.2 % (42.0-52.0); Hemoglobin 16.4 g/dl (14.0-18.0); Imm Gran Abs Auto 0.02 X10*3/uL (0.00-0.03); Imm Gran Pct Auto 0.3 % (0.0-0.4); Lymphocytes Absolute Auto 2.3 X10*3/uL (1.2-4.9); Lymphocytes Percent Auto 30.4 % (20-40); Mean Corpuscular HGB Conc 36.3 g/dl (31.0-36.0); Mean Corpuscular Hemoglobin 32.8 pg (27.0-33.0); Mean Corpuscular Volume 90.4 fL (80.0-98.0); Mean Platelet Volume 8.9 fL (9.4-12.4); Monocytes Absolute Auto 0.5 X10*3/uL (0.1-1.2); Monocytes Percent Auto 7.2 % (2-11); Neutrophils Absolute Auto 4.4 x10*3/uL (2.0-8.3); Neutrophils Percent Auto 58.9 % (45-73); Platelet Count 330 X10*3/uL (160-400); Red Cell Distribution Width 12.9 % (11.0-16.0); White Blood Count 7.5 X10*3/uL (4.8-10.8)
[2025-03-09 17:43] LABS: COVID-19 Test Negative (Negative); IDNOW Serial# 55D5AD1C
[2025-03-09 17:46] LABS: Acetaminophen LAB < 3 mcg/mL (<30); Alanine Aminotransferase 24 U/L (0-40); Albumin Level 4.3 g/dL (3.5-5.0); Alkaline Phosphatase 73 U/L (39-117); Anion Gap 15 (12-20); Aspartate Amino Transferase 24 U/L (5-37); Bilirubin Total 0.4 mg/dL (0.0-1.0); Blood Urea Nitrogen 7 mg/dL (9-16); Calcium 8.8 mg/dL (8.4-10.2); Carbon Dioxide 19 mmol/L (22-29); Chloride 110 mmol/L (96-108); Creatinine Clr Calc Pharmacy 107.1; Estimated Glomerular Filt Rate > 60; Ethanol 87 mg/dL; Glucose Random 139 mg/dL (60-115); Potassium 3.8 mmol/L (3.3-5.1); Salicylate < 5.0 mg/dL (15-30); Sodium 140 mmol/L (135-145)
[2025-03-09 18:12] LABS: Appearance Urine Clear; Color Urine Yellow; Glucose Urine UA Negative (Negative); Leukocyte Esterase Urine Negative (Negative); Nitrite Urine Negative (Negative); PH 5.5 (5.0-9.0); Specific Gravity - Urine <= 1.005 (1.005-1.025); Urine Blood Negative (Negative); Urine Ketones Negative (Negative); Urine Protein Negative (Neg-Trace)
[2025-03-09 18:18] VITALS: BP 107/80; PULSE 111; RESP 20; O2SAT 99
[2025-03-09 18:21] LABS: Amphetamine Screen Urine Not Detected (Not Detect); Barbiturates, Urine Not Detected (Not Detect); Benzodiazepines Screen Urine Not Detected (Not Detect); Buprenorphine Scr Not Detected (Not Detect); Cannabinoid Screen Urine POSITIVE (Not Detect); Cocaine Screen Urine Not Detected (Not Detect); Fentanyl, urine Not Detected (Not Detect); Methadone Screen, Urine Not Detected (Not Detect); Opiate Screen Urine Not Detected (Not Detect); Oxycodone Screen Urine Not Detected (Not Detect); Phencyclidine Screen Urine Not Detected (Not Detect)
--- NOTE | 2025-03-09 18:22 | PC.NURSE ---
Medication reconciliation complete; pt states he stopped taking all of his medications 1 1/2 mos ago
[2025-03-09] MEDS: Thiamine HCL 100 MG TABLET PO (19:45)
[2025-03-09 19:46] VITALS: BP 126/78; PULSE 100; RESP 16; TEMP 37; O2SAT 99
== END 2025-03-09 19:54 | disposition home or self-care (01) ==
PROVIDERS: Physician Assistant Medical; Emergency Provider Emergency Medicine
DX: F33.9 Major depressive disorder, recurrent, unspecified (principal); F10.20 Alcohol dependence, uncomplicated; Y90.4 Blood alcohol level of 80-99 mg/100 ml; R00.0 Tachycardia, unspecified; Z11.52 Encounter for screening for COVID-19
CPT/HCPCS: 80053; 80143; 80179; 80307; 81003; 85025; 87635; 93005; 99285; S9485

== ENCOUNTER → 2025-03-09 16:57 | Outpatient (BNV) | payer MEDICAID, SELFPAY | PROVIDERS: Emergency Provider Emergency Medicine; Visit Provider Internal Medicine Cardiovascular Disease | DX: R00.0 Tachycardia, unspecified (principal) | CPT/HCPCS: 93010 ==